=== PATIENT | male | born 1960 | race African-American/Black ===

== ENCOUNTER 2021-07-15 02:38 | Emergency (ER) | payer OTHER ==
[2021-07-15 03:01] VITALS: BP 160/100; PULSE 104; TEMP 98.3; BMI 27.1
== END 2021-07-15 04:12 | disposition home or self-care (01) ==
LOC: JER 02:38
DX: Z46.6 Encounter for fitting and adjustment of urinary device (principal)
CPT/HCPCS: 99281-25

== ENCOUNTER 2021-08-14 00:48 | Emergency (ER) | payer OTHER ==
[2021-08-14 01:18] VITALS: BP 150/90; PULSE 76; TEMP 98.1; BMI 33.9
[2021-08-14] MEDS ORDERED: BACITRACIN 15 GM TUBE TOPICAL OINTMENT TP ONE (01:33)
[2021-08-14] MEDS ORDERED: DIPHTH,PERTUSS(ACELL),TET 0.5 ML DISP.SYRIN IM ONE ×2 (01:33→01:38)
[2021-08-14] MEDS ORDERED: BACITRACIN 15 GM TUBE TOPICAL OINTMENT ONE (01:38)
== END 2021-08-14 02:04 | disposition home or self-care (01) ==
LOC: JER 00:48
PROC: 3E0234Z Introduction of Serum, Toxoid and Vaccine into Muscle, Percutaneous Approach (ICD-10-PCS; principal; 2021-08-14)
DX: S60.10XA Contusion of unspecified finger with damage to nail, initial encounter (principal); S62.524A Nondisplaced fracture of distal phalanx of right thumb, initial encounter for closed fracture; W23.1XXA Caught, crushed, jammed, or pinched between stationary objects, initial encounter; W20.8XXA Other cause of strike by thrown, projected or falling object, initial encounter
CPT/HCPCS: 73140-TC-RT-FY; 90471; 90715; 99284-25